=== PATIENT | male | born 1940 | race Caucasian/White ===

== ENCOUNTER 2017-05-21 12:48 | Observation (INO) | payer MEDICARE ==
[2017-05-18 08:27] VITALS: BP 174/113
[2017-05-18 09:08] LABS: BASOPHILS # (AUTO) 0.04 x10^3/uL (0-0.1); BASOPHILS % (AUTO) 1 % (0-1); EOSINOPHILS # (AUTO) 0.26 x10^3/uL (0-0.4); EOSINOPHILS % (AUTO) 3 % (1-7); LYMPHOCYTES # (AUTO) 1.72 x10^3/uL (1-3.4); LYMPHOCYTES % (AUTO) 22 % (22-44); MD NO; MEAN CORPUSCULAR HGB CONC 33.8 g/dL (33.2-36.2); MEAN CORPUSCULAR VOLUME 91.7 fL (81-97); MEAN PLATELET VOLUME 8.5 fL (7.4-10.4); MONOCYTES # (AUTO) 0.53 x10^3/uL (0.2-0.8); MONOCYTES % (AUTO) 7 % (2-9); NEUTROPHILS # (AUTO) 5.22 x10^3/uL (1.8-6.8); NEUTROPHILS % (AUTO) 67 % (42-75); PLATELET COUNT 239 x10^3/uL (130-400); RED BLOOD COUNT 5.53 x10^6/uL (4.38-5.82); RED CELL DISTRIBUTION WIDTH 15.3 % (9.4-14.8)
[2017-05-18 09:19] LABS: ANION GAP 3 mmol/L (5-15); CALCIUM 8.6 mg/dL (8.5-10.1); CHLORIDE 106 mmol/L (98-107)
[2017-05-18 09:55] LABS: MICROSCOPIC AUTO
[2017-05-18 10:04] LABS: CULTURE INDICATED? YES
[~2017-05-21] VITALS: Ht 177.8 cm; Wt 85.4 kg
[2017-05-21] MEDS: CEFAZOLIN PMX 1GM/50ML 50 ML IVPB SCH ×2 (12:30→20:30)
[~2017-05-21 12:48] MED LIST: ACETAMINOPHEN 325 MG TABLET PO PRN; BACITRACIN 50,000 UNIT ONE; BUPIVACAINE/PF 0.5% ONE; CEPH-376 PO; DIAZEPAM 2 MG TABLET PO PRN; EPINEPHRINE 1 MG/ML, 1ML ONE; HYDROmorphone 2 MG/ML, 1ML IVPush PRN; PHARMACY MAY ADJ FOR RENAL FX MC PRN; TAMS-11 PO; THROMBIN 5,000 UNIT VIAL TP ONE; TRANEXAMIC ACID 100 MG/ML, 10ML ONE; VANCOMYCIN 1,000 MG ONE
[2017-05-21] MEDS ORDERED: ACET325T14 PO (13:34)
[2017-05-21] MEDS ORDERED: ASPI-650 PO (13:35)
[2017-05-21] MEDS ORDERED: LACTATED RINGERS 1,000 ML IV SCH (13:36)
[2017-05-21] MEDS ORDERED: LIDOCAINE 1%, 2ML ONE (13:50)
[2017-05-21] MEDS ORDERED: LIDOCAINE 1%, 2ML SQ PRN (14:00)
[2017-05-21] MEDS ORDERED: FENTANYL PF 100 MCG/2ML ONE (14:17)
[2017-05-21] MEDS ORDERED: GABAPENTIN 300 MG CAPSULE ONE (14:17)
[2017-05-21] MEDS ORDERED: ACETAMINOPHEN 500 MG TABLET ONE (14:17)
[2017-05-21] MEDS ORDERED: FENTANYL PF 100 MCG/2ML IVPush PRN (14:30)
[2017-05-21] MEDS ORDERED: GABAPENTIN 300 MG CAPSULE PO SCH (14:30)
[2017-05-21] MEDS ORDERED: ACETAMINOPHEN 500 MG TABLET PO ONE (14:30)
[2017-05-21] MEDS ORDERED: MIDAZOLAM 1 MG/ML, 2ML ONE ×2 (16:09→18:56)
[2017-05-21] MEDS ORDERED: FENTANYL PF 250 MCG/5ML ONE (16:10)
[2017-05-21] MEDS ORDERED: SUCCINYLCHOLINE 20 MG/ML, 10ML ONE (16:34)
[2017-05-21] MEDS ORDERED: ONDANSETRON 2MG/ML, 2ML ONE (16:34)
[2017-05-21] MEDS ORDERED: ROCURONIUM 10MG/ML,5ML ONE (16:34)
[2017-05-21] MEDS ORDERED: PROPOFOL 10 MG/ML, 20ML ONE (16:34)
[2017-05-21] MEDS ORDERED: DEXAMETHASONE 4 MG/ML, 1ML ONE (16:34)
[2017-05-21] MEDS ORDERED: OXYcodone 5 MG/5 ML ORAL.SOL UDC PO PRN (17:00)
[2017-05-21] MEDS ORDERED: ACETAMINOPHEN 325 MG TABLET PO PRN (17:00)
[2017-05-21] MEDS ORDERED: ONDANSETRON 2MG/ML, 2ML IVPush PRN (17:00)
[2017-05-21] MEDS ORDERED: HYDROcodone/APAP 7.5-325MG/15ML UDC PO PRN (17:00)
[2017-05-21] MEDS ORDERED: FENTANYL PF 100 MCG/2ML IV PRN (17:00)
[2017-05-21] MEDS ORDERED: HYDROmorphone 2 MG/ML, 1ML IV PRN (17:00)
[2017-05-21] MEDS ORDERED: HYDROmorphone 2 MG/ML, 1ML ONE (17:25)
[2017-05-21] MEDS ORDERED: KETOROLAC 30 MG/1 ML ONE (17:37)
[2017-05-21] MEDS ORDERED: ACETAMINOPHEN 650 MG/20.3 ML UDC ONE (18:26)
[2017-05-21] MEDS ORDERED: OXYcodone 5 MG/5 ML ORAL.SOL UDC ONE (18:26)
[2017-05-21] MEDS ORDERED: hydrALAzine 20 MG/ML, 1ML ONE (18:52)
[2017-05-21] MEDS ORDERED: hydrALAzine 20 MG/ML, 1ML IV PRN (19:00)
[2017-05-21] MEDS ORDERED: MIDAZOLAM 1 MG/ML, 2ML IV PRN (19:00)
[2017-05-22] MEDS ORDERED: TAMSULOSIN 0.4 MG CAP.ER.24H PO SCH (00:26)
[2017-05-22 00:28] VITALS: BP 150/96
[2017-05-22] MEDS: CEFAZOLIN PMX 1GM/50ML 50 ML IV SCH ×2 (00:36→07:48)
[2017-05-22] MEDS: OXYcodone/APAP 5/325MG TABLET PO PRN ×2 (00:36→05:47)
[2017-05-22 03:52] VITALS: BP 135/84
[2017-05-22] MEDS ORDERED: PNEUMOCOCCAL 23 VACCINE IM-VACC ONE (08:30)
== END 2017-05-22 10:27 | disposition home or self-care (01) ==
LOC: OUT 12:48 → 4NOR 20:06 → OUT 23:03 → 4NOR 23:03
PROVIDERS: ADMIT Orthopaedic Surgery Orthopaedic Surgery of the Spine; ATTEND Orthopaedic Surgery Orthopaedic Surgery of the Spine
DX: M48.061 Spinal stenosis, lumbar region without neurogenic claudication (principal); Z23 Encounter for immunization
CPT/HCPCS: 36415; 63047; 71046; 72100; 80048; 81001; 85025; 87086; 90471; 90732; 93005; 96365; 96375; G0378; J0171; J0330; J0360; J0690; J1100; J1170; J1885; J2250; J2405; J2704; J3010; J3370; J3490